=== PATIENT | female | born 1990 | race Caucasian/White ===

== ENCOUNTER 2021-02-07 15:50 | Inpatient (IN) | payer OTHER ==
[2021-02-07 17:48] VITALS: BMI 27.4
[2021-02-07] MEDS ORDERED: ACETAMINOPHEN 325 MG TABLET (FP) PO PRN (19:40)
[2021-02-07] MEDS ORDERED: diazePAM 5 MG TABLET PO PRN (19:40)
[2021-02-07] MEDS ORDERED: MENTHOL/PHENOL 1 EACH UD MM PRN (19:40)
[2021-02-07] MEDS ORDERED: ONDANSETRON *ODT* 4 MG TABLET SL PRN (19:40)
[2021-02-07] MEDS ORDERED: BISMUTH SUBSALICYLATE 524 MG/30 ML UD PO PRN (19:40)
[2021-02-07] MEDS ORDERED: MAG HYDROX/AL HYDROX/SIMETH 30 ML UNIT-DOSE CUP PO PRN (19:40)
[2021-02-07] MEDS ORDERED: MAGNESIUM CITRATE 300 ML BOTTLE PO PRN (19:40)
[2021-02-07] MEDS ORDERED: MAGNESIUM HYDROX 2400MG/30ML ORAL SUSPENSION 30 ML CUP PO PRN (19:40)
[2021-02-07] MEDS ORDERED: NICOTINE POLACRILEX 4 MG GUM BUC PRN (19:40)
[2021-02-07] MEDS: THIAMINE HCL 100 MG TABLET (FP) PO SCH (22:08)
[2021-02-07] MEDS: MELATONIN 5 MG TABLETS PO SCH (22:08)
[2021-02-07] MEDS: diazePAM 5 MG TABLET PO ONE (22:08)
[2021-02-07] MEDS: diazePAM 5 MG TABLET PO SCH (22:13)
[2021-02-08] MEDS ORDERED: AMOXICILLIN 500 MG CAPSULE (FP) PO SCH (06:00)
[2021-02-08] MEDS: diazePAM 5 MG TABLET PO SCH ×4 (06:02→22:35)
[2021-02-08 10:26] LABS: HEMATOCRIT 37.8 % (32.4-45.2); HEMOGLOBIN 13.1 GM/dL (10.7-15.3); MCH 35.2 pg (25.7-33.7); MCHC 34.7 g/dl (32.0-36.0); MEAN CELL VOLUME 101.6 fl (80-96); MEAN PLT VOLUME 8.4 fl (7.5-11.1); PLATELET COUNT 185 K/MM3 (134-434); RBC 3.72 M/mm3 (3.60-5.2); WHITE BLOOD COUNT 5.8 K/mm3 (4.0-10.0)
[2021-02-08 10:28] LABS: ALBUMIN 3.4 g/dl (3.4-5.0); BLOOD UREA NITROGEN 9.8 mg/dL (7-18)
[2021-02-08 10:30] LABS: CALCIUM 8.7 mg/dL (8.5-10.1)
[2021-02-08 10:31] LABS: CREATININE 0.6 mg/dL (0.55-1.3)
[2021-02-08 10:32] LABS: BILIRUBIN,TOTAL 1.2 mg/dL (0.2-1); TOT PROT 6.4 g/dl (6.4-8.2)
[2021-02-08] MEDS: PRENATAL VITAMINS W/ FOLIC ACID TABLET (FP) PO SCH (11:23)
[2021-02-08] MEDS: NICOTINE 21 MG/24 HOURS TOPICAL PATCH TD SCH (11:23)
[2021-02-08] MEDS: levETIRAcetam XR 500 MG TAB PO SCH ×2 (11:24→22:52)
[2021-02-08] MEDS: IBUPROFEN 400 MG TABLET (FP) PO PRN ×2 (15:07→23:20)
[2021-02-08] MEDS: THIAMINE HCL 100 MG TABLET (FP) PO SCH (22:35)
[2021-02-08] MEDS: MELATONIN 5 MG TABLETS PO SCH (22:35)
[2021-02-08] MEDS: hydrOXYzine PAMOATE 25 MG CAPSULE (FP) PO PRN (22:35)
[2021-02-09] MEDS: diazePAM 5 MG TABLET PO SCH ×3 (05:34→23:39)
[2021-02-09] MEDS: PRENATAL VITAMINS W/ FOLIC ACID TABLET (FP) PO SCH (10:57)
[2021-02-09] MEDS: hydrOXYzine PAMOATE 25 MG CAPSULE (FP) PO PRN (10:58)
[2021-02-09] MEDS: levETIRAcetam XR 500 MG TAB PO SCH ×2 (10:58→23:39)
[2021-02-09] MEDS: NICOTINE 21 MG/24 HOURS TOPICAL PATCH TD SCH (10:58)
[2021-02-09] MEDS: IBUPROFEN 400 MG TABLET (FP) PO PRN ×2 (10:59→17:35)
[2021-02-09] MEDS: METHOCARBAMOL 500 MG TABLET PO PRN (10:59)
[2021-02-09] MEDS: THIAMINE HCL 100 MG TABLET (FP) PO SCH (23:38)
[2021-02-09] MEDS: MELATONIN 5 MG TABLETS PO SCH (23:39)
[2021-02-10] MEDS: diazePAM 5 MG TABLET PO SCH ×2 (06:22→17:47)
[2021-02-10] MEDS: PRENATAL VITAMINS W/ FOLIC ACID TABLET (FP) PO SCH (11:11)
[2021-02-10] MEDS: hydrOXYzine PAMOATE 25 MG CAPSULE (FP) PO PRN (11:11)
[2021-02-10] MEDS: levETIRAcetam XR 500 MG TAB PO SCH ×2 (11:12→22:06)
[2021-02-10] MEDS: NICOTINE 21 MG/24 HOURS TOPICAL PATCH TD SCH (11:12)
[2021-02-10] MEDS: IBUPROFEN 400 MG TABLET (FP) PO PRN ×2 (11:14→22:07)
[2021-02-10] MEDS: METHOCARBAMOL 500 MG TABLET PO PRN (11:14)
[2021-02-10] MEDS: ACETAMINOPHEN 325 MG TABLET (FP) PO PRN (17:45)
[2021-02-10] MEDS: MELATONIN 5 MG TABLETS PO SCH (22:06)
[2021-02-10] MEDS: THIAMINE HCL 100 MG TABLET (FP) PO SCH (22:06)
[2021-02-11] MEDS: diazePAM 5 MG TABLET PO ONE (05:44)
[2021-02-11] MEDS: ACETAMINOPHEN 325 MG TABLET (FP) PO PRN (05:44)
[2021-02-11] MEDS: hydrOXYzine PAMOATE 25 MG CAPSULE (FP) PO PRN ×2 (05:46→10:25)
[2021-02-11] MEDS: PRENATAL VITAMINS W/ FOLIC ACID TABLET (FP) PO SCH (10:24)
[2021-02-11] MEDS: IBUPROFEN 400 MG TABLET (FP) PO PRN (10:25)
[2021-02-11] MEDS: NICOTINE 21 MG/24 HOURS TOPICAL PATCH TD SCH (10:25)
[2021-02-11] MEDS: levETIRAcetam XR 500 MG TAB PO SCH (10:27)
[2021-02-11 11:10] VITALS: BP 109/75; PULSE 67; TEMP 97.8
[2021-02-12 06:06] LABS: SARS-CoV-2 NAA Not Detected (Not Detected)
== END 2021-02-11 14:32 | disposition home or self-care (01) | DRG 773 ==
LOC: YASAS 15:50 → Y6N 21:30
PROVIDERS: ADMIT Allergy & Immunology; ATTEND Allergy & Immunology
PROC: HZ2ZZZZ Detoxification Services for Substance Abuse Treatment (ICD-10-PCS; principal; 2021-02-07)
DX: F10.230 Alcohol dependence with withdrawal, uncomplicated (principal); F11.20 Opioid dependence, uncomplicated; F17.210 Nicotine dependence, cigarettes, uncomplicated; G40.909 Epilepsy, unspecified, not intractable, without status epilepticus; K04.7 Periapical abscess without sinus; Z86.19 Personal history of other infectious and parasitic diseases; S99.922D Unspecified injury of left foot, subsequent encounter; X58.XXXD Exposure to other specified factors, subsequent encounter
CPT/HCPCS: 36415; 73630-TC-LT; 80053; 85027; 86593; 86780; C9803; U0003; U0005